=== PATIENT | male | born 1970 | race Caucasian/White ===

== ENCOUNTER 2020-08-16 05:55 | Emergency (ER) | payer BC, OTHER ==
[~2020-08-16] VITALS: Ht 167.6 cm; Wt 147.3 kg
[2020-08-16] MEDS ORDERED: LIDOCAINE 1% 10 ML VIAL ID ONE (08:15)
[2020-08-16 08:59] VITALS: BP 145/88
== END 2020-08-16 09:22 | disposition home or self-care (01) ==
LOC: EMS 06:02
DX: L03.032 Cellulitis of left toe (principal); L60.0 Ingrowing nail
CPT/HCPCS: 10060; 99283; J3490

== ENCOUNTER 2021-02-17 08:23 | Emergency (ER) | payer BC ==
[~2021-02-17] VITALS: Ht 177.8 cm; Wt 109.1 kg
[2021-02-17 08:31] VITALS: BP 154/100
[2021-02-17] MEDS ORDERED: ACETAMINOPHEN 500 MG TABLET PO ONE (08:45)
[2021-02-17 09:13] LABS: COVID AG,FIA SOURCE NASOPHARYNGEAL
== END 2021-02-17 11:11 | disposition home or self-care (01) ==
LOC: EMS 08:26
DX: U07.1 COVID-19 (principal)
CPT/HCPCS: 99283